=== PATIENT | male | born 1955 | race Caucasian/White ===

== ENCOUNTER → 2016-10-08 | Outpatient (REF) | LOC: WSOH 13:08 | DX: Z00.00 Encounter for general adult medical examination without abnormal findings (principal) | CPT/HCPCS: G0463 ==

== ENCOUNTER 2021-02-02 21:05 | Emergency (ER) | payer BC ==
[~2021-02-02] VITALS: Ht 182.9 cm; Wt 95.5 kg
[2021-02-02 21:11] VITALS: TEMP 98.2
[2021-02-02 21:48] LABS: COLLECTION METHOD CLEAN CATCH
[2021-02-02] MEDS ORDERED: BENAZEPRIL (21:51)
[2021-02-02] MEDS ORDERED: FLOMAX 0.40.4 MG/CAP PO (21:51)
[2021-02-02] MEDS ORDERED: NORVASC 5MG5 MG/TAB PO (21:51)
[2021-02-02 21:55] LABS: PH 5 (5-8); SQUAMOUS EPITHELIAL None Seen /hpf; URINE APPEARANCE Clear; URINE BACTERIA Rare /hpf; URINE BILIRUBIN Negative (NEGATIVE); URINE BLOOD 3+ (NEGATIVE); URINE COLOR Straw; URINE GLUCOSE Negative (NEGATIVE); URINE KETONE Negative (NEGATIVE); URINE LEUKOCYTE ESTERASE Negative (NEGATIVE); URINE NITRATE Negative (NEGATIVE); URINE PROTEIN(semi-quant) Negative (NEGATIVE); URINE RBC 0-2 /hpf; URINE UROBILINOGEN Negative (NEGATIVE)
[2021-02-02 22:07] VITALS: BP 132/80; PULSE 65
== END 2021-02-02 22:11 | disposition home or self-care (01) ==
LOC: COL.ER 21:05
PROVIDERS: Emergency Medicine
DX: R33.9 Retention of urine, unspecified (principal); R10.30 Lower abdominal pain, unspecified